=== PATIENT | male | born 1950 | race Caucasian/White ===

== ENCOUNTER → 2020-05-06 10:22 | Outpatient (BNVA) | payer MEDICARE, OTHER, SELFPAY | PROVIDERS: Family Provider Family Medicine; Visit Provider Internal Medicine Rheumatology | DX: M1A.9XX1 Chronic gout, unspecified, with tophus (tophi) (principal); Z79.899 Other long term (current) drug therapy; M19.90 Unspecified osteoarthritis, unspecified site; N18.30 Chronic kidney disease, stage 3 unspecified; Z11.59 Encounter for screening for other viral diseases; Z11.1 Encounter for screening for respiratory tuberculosis; M10.9 Gout, unspecified; M25.559 Pain in unspecified hip | CPT/HCPCS: 36415; 71046; 72170; 73070; 73130; 73630; 80076; 82306; 82565; 84550; 85651; 86038; 86140; 86431; 86480; 86704; 86803; 87340; 99204 ==

== ENCOUNTER 2020-05-06 13:01 | Outpatient (CLI) | payer MEDICARE, OTHER, SELFPAY ==
--- NOTE | 2020-05-06 13:18 | XR_ITS ---
WS: [id number] Left foot, 3 views, 05/06/2020 Clinical Data: M10.9 - Gout, unspecified Comparison: None. Findings: No fractures or dislocations are seen. No bone destruction or erosion is noted. The joint spaces and soft tissues are normal. There is an Achilles spur and a small plantar spur. No periarticular demineralization or calcificatio ns are seen. XR/XR foot LT min 3V* [id number] Impression: Negative left foot.
--- NOTE | 2020-05-06 13:18 | XR_ITS ---
WS: [id number] Left hand, 3 views, 05/06/2020 Clinical Data: M10.9 - Gout, unspecified Comparison: None. Findings: No fractures or dislocations are seen. The soft tissues are unremarkable. The joint spaces are normal No periarticular demineralization or calcifications are seen. XR/XR hand LT min 3V* [id number] Impression: Negative left hand.
--- NOTE | 2020-05-06 13:18 | XR_ITS ---
WS: [id number] Right hand, 3 views, 05/06/2020 Clinical Data: M10.9 - Gout, unspecified Comparison: None. Findings: No fractures or dislocations are seen. The soft tissues are unremarkable. There is mild o steoarthritic narrowing of the second MCP joint. No periarticular demineralization or calcifications are seen. 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
--- NOTE | 2020-05-06 13:18 | XR_ITS ---
WS: [id number] Left elbow, 2 views, 05/06/2020 Clinical Data: M10.9 - Gout, unspecified Comparison: None. Findings: No fractures or dislocations are seen. The radial head is normal. There are calcifications adjacent t o the lateral condyle of the left humerus. This may be result of a prior injury. There is an olecrano n spur with soft tissue swelling of the olecranon bursa which can be seen with gout. No periarticular demineralization is seen. XR/XR elbow LT 2V [id number] Impression: 1. Calcifications adjacent to lateral humeral condyle of the left elbow. 2. Soft tissue swelling of the olecranon bursa which can be seen with gout.
--- NOTE | 2020-05-06 13:18 | XR_ITS ---
WS: [id number] Right elbow, AP and lateral views, 05/06/2020 Clinical Data: M10.9 - Gout, unspecified Comparison: None. Findings: No fractures or dislocations are seen. The radial head is normal.. There are calcifications adjacent to the lateral humeral condyle which may be from an old injury. The re is a small olecranon spur. There is soft tissue swelling of the olecranon bursa which can be seen with gout. No periarticular demineralization is seen. XR/XR elbow RT 2V [id number] Impression: 1. Calcifications adjacent to the lateral humeral condyle which may be from an injury. 2. Soft tissue swelling of olecranon bursa which can be seen with gout.
--- NOTE | 2020-05-06 13:18 | XR_ITS ---
WS: [id number] Chest 2 views, 05/06/2020 Clinical Data: M10.9 - Gout, unspecified Comparison: None. Findings: No nodules, masses or effusions are seen. The heart is slightly enlarged. The pulmonary vas cularity is not increased. No pneumonia or pneumothorax is seen. The aortic arch and descending aorta are tortuous. Midline sternotomy sutures with mediastinal clips are seen. XR/XR chest 2V* [id number] Impression: Cardiomegaly and atherosclerosis.
--- NOTE | 2020-05-06 13:18 | XR_ITS ---
WS: [id number] Right foot, 3 views, 05/06/2020 Clinical Data: M10.9 - Gout, unspecified Comparison: None. Findings: No fractures or dislocations are seen. No bone destruction or erosion is noted. There is a small buni on at the head of the right first metatarsal. No periarticular calcifications are seen. There are cli ps in the medial soft tissue of the distal right leg probably from vascular surgery. There is an Achilles spur. XR/XR foot RT min 3V* [id number] Impression: Small bunion at head of right first metatarsal.
--- NOTE | 2020-05-06 13:18 | XR_ITS ---
WS: [id number] Pelvis, AP view, 05/06/2020 Clinical Data: M25.559 - Pain in unspecified hip Comparison: None. Findings: No fractures or dislocations are seen. The SI joints and pubic symphysis are intact. The soft tissues are not remarkable. The hips are normal. There is vascular calcification seen in the iliac and femoral arteries. XR/XR pelvis 1-2V* [id number] Impression: Negative AP pelvis.
[2020-05-06 14:28] LABS: Erythrocyte Sedimentation Rate 31 mm/hr (0-10)
[2020-05-06 14:35] LABS: 25 Hydroxy Vitamin D 26 ng/mL (30-100); Alanine Aminotransferase 18 U/L (0-41); Albumin Level 3.9 g/dL (3.5-5.2); Alkaline Phosphatase 73 IU/L (40-130); Aspartate Amino Transferase 15 U/L (0-40); C Reactive Protein 13.2 mg/L (0.0-4.9); Globulin 2.5 g/dL (1.3-4.6); Total Bilirubin 0.4 mg/dL (0.15-1.2); Total Protein 6.4 g/dL (6.6-8.7); Uric Acid 8.5 mg/dL (3.4-7.0)
[2020-05-06 16:17] LABS: Hepatitis B Surface Antigen Non-Reactive (Nonreactive); Hepatitis C Virus Antibody Non-Reactive (Nonreactive)
[2020-05-07 00:05] LABS: Hepatitis B Core AB, Total Non-Reactive (Nonreactive)
[2020-05-07 14:18] LABS: Cyclic Citrullinated Peptide <16 UNITS
[2020-05-08 13:47] LABS: Quantiferon Nil 0.02 IU/mL; Quantiferon TB Gold NEGATIVE (NEGATIVE)
[2020-05-10 11:18] LABS: Anti-Nuclear Antibody Pattern Nuclear, Speckled; Anti-Nuclear Antibody Screen POSITIVE (NEGATIVE); Anti-Nuclear Antibody Titer 1:40 titer
== END 2020-05-06 13:02 | disposition home or self-care (01) ==
LOC: RAD 13:14
PROVIDERS: PCP Family Medicine; Visit Provider Internal Medicine Rheumatology
DX: M10.9 Gout, unspecified (principal); M19.90 Unspecified osteoarthritis, unspecified site; Z79.899 Other long term (current) drug therapy; M25.559 Pain in unspecified hip; Z11.59 Encounter for screening for other viral diseases; Z11.1 Encounter for screening for respiratory tuberculosis
CPT/HCPCS: 36415; 71046; 72170; 73070; 73130; 73630; 80076; 82306; 82565; 84550; 85651; 86038; 86140; 86431; 86480; 86704; 86803; 87340

== ENCOUNTER → 2020-06-07 12:35 | Outpatient (BNVA) | payer MEDICARE, OTHER, SELFPAY | PROVIDERS: PCP Family Medicine; Visit Provider Internal Medicine Rheumatology | DX: M1A.9XX1 Chronic gout, unspecified, with tophus (tophi) (principal); M06.00 Rheumatoid arthritis without rheumatoid factor, unspecified site; Z79.899 Other long term (current) drug therapy; N18.30 Chronic kidney disease, stage 3 unspecified | CPT/HCPCS: 99214 ==

== ENCOUNTER → 2020-07-21 10:54 | Outpatient (BNVA) | payer MEDICARE, OTHER, SELFPAY | PROVIDERS: PCP Family Medicine; Visit Provider Internal Medicine Rheumatology | DX: Z71.89 Other specified counseling (principal); Z79.899 Other long term (current) drug therapy; M19.90 Unspecified osteoarthritis, unspecified site; N18.9 Chronic kidney disease, unspecified | CPT/HCPCS: 36415; 80076; 82565; 84550; 85025; 85651; 86140 ==

== ENCOUNTER → 2020-09-22 08:53 | Outpatient (BNVA) | payer MEDICARE, OTHER, SELFPAY | PROVIDERS: PCP Family Medicine; Visit Provider Internal Medicine Rheumatology | DX: M06.00 Rheumatoid arthritis without rheumatoid factor, unspecified site (principal); M1A.9XX1 Chronic gout, unspecified, with tophus (tophi); Z79.899 Other long term (current) drug therapy; N18.30 Chronic kidney disease, stage 3 unspecified; Z95.1 Presence of aortocoronary bypass graft; Z71.89 Other specified counseling | CPT/HCPCS: 99214 ==

== ENCOUNTER → 2020-10-27 10:22 | Outpatient (BNVA) | payer MEDICARE, OTHER, SELFPAY | PROVIDERS: PCP Family Medicine; Visit Provider Internal Medicine Rheumatology | DX: M06.00 Rheumatoid arthritis without rheumatoid factor, unspecified site (principal); M19.90 Unspecified osteoarthritis, unspecified site; M1A.9XX1 Chronic gout, unspecified, with tophus (tophi); Z79.899 Other long term (current) drug therapy | CPT/HCPCS: 36415; 80076; 82565; 84550; 85025; 86140 ==

== ENCOUNTER → 2020-12-27 09:21 | Outpatient (BNVA) | payer MEDICARE, OTHER, SELFPAY | PROVIDERS: PCP Family Medicine; Visit Provider Internal Medicine Rheumatology | DX: M1A.9XX1 Chronic gout, unspecified, with tophus (tophi) (principal); M06.00 Rheumatoid arthritis without rheumatoid factor, unspecified site; Z79.899 Other long term (current) drug therapy; N18.30 Chronic kidney disease, stage 3 unspecified; Z95.1 Presence of aortocoronary bypass graft | CPT/HCPCS: 99214 ==